=== PATIENT | female | born 1960 | race Caucasian/White ===

== ENCOUNTER 2017-03-13 12:29 | Emergency (ER) | payer MEDICAID ==
[~2017-03-13] VITALS: Ht 165.1 cm; Wt 86.2 kg
[2017-03-13 12:35] VITALS: BP 133/79
--- NOTE | 2017-03-13 12:41 | NUR ---
PT AMBULATE TO RESTROOM WITH EVEN AND STEADY GAIT FOR URINE SAMPLE.
--- NOTE | 2017-03-13 12:43 | NUR ---
PATIENT AMBULATED TO ER BED 8.
--- NOTE | 2017-03-13 12:50 | NUR ---
PATIENT PRESENTS TO ED WITH 56/F BIB SELF HERE FOR DIZZINESS X8DAYS, WORSE TODAY WITH R ANKLE SWELLING/PAIN X8MOS, ALSO GETTING WORSE X4DAYS WITH DIFFICULY AMBULATION. HX [place] 2YRS AGO, HYSTERECTOMY 2001 FOR CERVICAL CANCER. DENIES N/V/D; SKIN IS PINK/WARM/DRY; AAOX4 WITH EVEN AND STEADY GAIT; LUNGS CLEAR BL; HR EVEN AND REGULAR; PT DENIES ANY FEVER, CP, SOB, OR COUGH AT THIS TIME; PATIENT STATES RT ANKLE PAIN OF 7/10 AT THIS TIME; VSS; PATIENT POSITIONED FOR COMFORT; HOB ELEVATED; BEDRAILS UP X2; BED DOWN. ER MD MADE AWARE OF PT STATUS.
--- NOTE | 2017-03-13 13:00 | NUR ---
PATIENT BEING EVALUATED BY DR. HUTSON.
[2017-03-13 13:27] LABS: BASOPHILS # (AUTO) 0.3 K/uL (0.00-0.22); EOSINOPHILS # (AUTO) 0.1 K/uL (0-0.4); HEMATOCRIT 39.8 % (36-48); HEMOGLOBIN 13.3 g/dL (12.0-16.0); LYMPHOCYTES # (AUTO) 1.9 K/uL (2.5-16.5); MEAN CORPUSCULAR HEMOGLOBIN 30 pg (27-31); MEAN CORPUSCULAR HGB CONC 33 g/dL (33-37); MEAN CORPUSCULAR VOLUME 89 fL (80-94); MONOCYTES # (AUTO) 0.4 K/uL (0.8-1.0); NEUTROPHILS # (AUTO) 3.3 K/uL (1.8-7.7); PLATELET COUNT (AUTO) 168 K/uL (140-450); RED CELL DISTRIBUTION WIDTH 12.4 % (11.6-13.7)
[2017-03-13] MEDS ORDERED: MECLIZINE 25 MG TAB PO ONE (13:45)
[2017-03-13 16:00] VITALS: BP 128/88
--- NOTE | 2017-03-14 10:46 | NUR ---
TELEPHONED PATIENT AT NUMBER GIVEN WENT TO [employer] ASKED TO RETRURN TO ER FOR SPLINT.
--- NOTE | 2017-03-15 11:09 | NUR ---
PATIENT REETURNED TO ER AT THIS TIME FOR SPLINTING, AIR SPLINT APPLIED TO RIGHT ANKLE, TOLERATED WELL CD COPY OF X RAYS PROVIDED. PATIENT AMBULATED W/O DIFFICULTY.
== END 2017-03-13 16:00 | disposition home or self-care (01) ==
LOC: MED 12:29
DX: S82.51XA Displaced fracture of medial malleolus of right tibia, initial encounter for closed fracture (principal); M25.561 Pain in right knee; M25.571 Pain in right ankle and joints of right foot; R42 Dizziness and giddiness; R03.0 Elevated blood-pressure reading, without diagnosis of hypertension; Z90.710 Acquired absence of both cervix and uterus; Z88.5 Allergy status to narcotic agent; X58.XXXA Exposure to other specified factors, initial encounter; Y93.89 Activity, other specified; Y92.89 Other specified places as the place of occurrence of the external cause; Y99.8 Other external cause status
CPT/HCPCS: 29515; 36415; 70450; 73562; 73610; 84550; 85025; 93880; 99285; J8597; Q0092

== ENCOUNTER 2017-10-25 16:19 | Emergency (ER) | payer MEDICAID, OTHER ==
[~2017-10-25] VITALS: Ht 165.1 cm; Wt 92.1 kg
[2017-10-25 16:30] VITALS: BP 147/81
--- NOTE | 2017-10-25 16:37 | NUR ---
Patient ambulated to chair B. RN evaluating patient.
--- NOTE | 2017-10-25 16:50 | NUR ---
patient is a 57 year old female who arrived via private vehicle with c/o left knee pain due to a sustained fall one week ago. patient is alert and oriented x 4. respirations are even and unlabored. patient denies any cough, dyspnea, n,v,d, fever or chills. patient is able to ambulated independently, tolerating discomfort. patient also states, took ibuprofen x 2 today. noted bruising to left knee area. skin is warm, d, i. pulses present. awaiting md evaluation.
--- NOTE | 2017-10-25 17:01 | NUR ---
Dr. Urias evaluating patient.
--- NOTE | 2017-10-25 17:31 | NUR ---
patient transported to radiology in a wheelchair.
--- NOTE | 2017-10-25 17:51 | NUR ---
patient returned in a wheelchair from radiology transported by risk tech.
--- NOTE | 2017-10-25 18:30 | NUR ---
follow up made with patient in regards to her left knee pain, previously declined pain medication when offered. patient states, pain is still present but she is ok at the moment. update given on patient's status. will continue to monitor.
[2017-10-25 19:25] VITALS: BP 132/74
--- NOTE | 2017-10-25 19:25 | NUR ---
Patient discharged with v/s stable. Written and verbal after care instructions given and explained. Patient alert, oriented and verbalized understanding of instructions. Ambulatory with steady gait. All questions addressed prior to discharge. ID band removed. Patient advised to follow up with PMD. Rx of Gayatri given. Patient educated on indication of medication including possible reaction and side effects. Opportunity to ask questions provided and answered.
== END 2017-10-25 19:25 | disposition home or self-care (01) ==
LOC: MED 16:19
DX: M25.562 Pain in left knee (principal); G47.00 Insomnia, unspecified; I25.2 Old myocardial infarction; Z85.41 Personal history of malignant neoplasm of cervix uteri; Z88.8 Allergy status to other drugs, medicaments and biological substances
CPT/HCPCS: 93971; 99284; Q0092

== ENCOUNTER 2018-09-11 08:17 | Emergency (ER) | payer OTHER ==
[~2018-09-11] VITALS: Ht 165.1 cm; Wt 95.8 kg
[2018-09-11 08:22] VITALS: BP 144/83
[2018-09-11 09:11] LABS: BASOPHILS % (AUTO) 0.4 % (0.0-2.0); EOSINOPHILS # (AUTO) 0.1 K/uL (0-0.4); EOSINOPHILS % (AUTO) 1.4 % (0.0-4.0); HEMATOCRIT 41.5 % (36-48); HEMOGLOBIN 13.7 g/dL (12.0-16.0); LYMPHOCYTES # (AUTO) 1.3 K/uL (2.5-16.5); LYMPHOCYTES % (AUTO) 23.3 % (20.5-51.1); MEAN CORPUSCULAR HEMOGLOBIN 29 pg (27-31); MEAN CORPUSCULAR HGB CONC 33 g/dL (33-37); MEAN CORPUSCULAR VOLUME 88.5 fL (80-94); MONOCYTES # (AUTO) 0.4 K/uL (0.8-1.0); MONOCYTES % (AUTO) 6.4 % (1.7-9.3); NEUTROPHILS # (AUTO) 3.9 K/uL (1.8-7.7); NEUTROPHILS % (AUTO) 68.5 % (42.2-75.2); PLATELET COUNT (AUTO) 180 K/uL (140-450); RED BLOOD CELL COUNT(AUTO) 4.68 MIL/uL (4.20-5.40); RED CELL DISTRIBUTION WIDTH 13.7 % (11.6-13.7); WHITE BLOOD COUNT (AUTO) 5.6 K/uL (4.8-10.8)
[2018-09-11 09:55] LABS: CHLORIDE 102 mmol/L (98-107); CREATININE 0.7 mg/dL (0.6-1.3); GFR ARICAN-AMERICAN 111 mL/min (>90); GLUCOSE 111 mg/dL (74-106); POTASSIUM 4.2 mmol/L (3.5-5.1); SODIUM SERUM 138 mmol/L (136-145); UREA NITROGEN, BLOOD 17 mg/dL (7-18)
[2018-09-11 10:01] LABS: ALBUMIN 4.3 g/dL (3.4-5.0); ASPARTATE AMINOTRANSFERASE 22 U/L (15-37); TOTAL BILIRUBIN 0.3 mg/dL (0.0-1.0)
[2018-09-11 10:16] LABS: PROTHROMBIN TIME 9.4 secs (10.8-13.4)
[2018-09-11 11:35] LABS: APPEARANCE,URINE CLEAR (CLEAR); BILIRUBIN,URINE NEGATIVE (NEGATIVE); BLOOD, URINE NEGATIVE (NEGATIVE); COLOR,URINE YELLOW (YELLOW); LEUKOCYTE ESTERASE ,URINE NEGATIVE (NEGATIVE); NITRITE, URINE NEGATIVE (NEGATIVE); UGLUCOSE NEGATIVE (NEGATIVE)
[2018-09-11 12:01] VITALS: BP 129/97
== END 2018-09-11 12:02 | disposition home or self-care (01) ==
LOC: MED 08:17
DX: F41.9 Anxiety disorder, unspecified (principal); I25.2 Old myocardial infarction; Z88.6 Allergy status to analgesic agent; Z88.5 Allergy status to narcotic agent; Z85.41 Personal history of malignant neoplasm of cervix uteri
CPT/HCPCS: 36415; 70450; 71045; 80053; 81003; 84484; 85025; 85610; 85730; 93005; 99284